=== PATIENT | male | born 1970 | race Caucasian/White ===

== ENCOUNTER 2025-04-03 08:47 | Day surgery (SDC) | payer OTHER ==
[2025-03-31 13:51] VITALS: BMI 31.3
[2025-04-03] MEDS ORDERED: PROPOFOL 120 ML ONE (10:49)
[2025-04-03] MEDS ORDERED: LIDOCAINE VISCOUS 2% ORAL/TOP 15 ML UNIT-DOSE CUP ONE (10:51)
[2025-04-03] MEDS ORDERED: ACETAMINOPHEN 325 MG TABLET (FP) ONE (11:57)
[2025-04-03] MEDS: ACETAMINOPHEN 325 MG TABLET (FP) PO ONE (12:00)
[2025-04-03 12:14] VITALS: RESP 19; TEMP 98
[2025-04-03 12:17] VITALS: BP 125/84; PULSE 74
== END 2025-04-03 12:20 | disposition home or self-care (01) ==
LOC: FASU-ENDO 08:47
PROVIDERS: ATTEND Internal Medicine Gastroenterology
PROC: 0DB98ZX Excision of Duodenum, Via Natural or Artificial Opening Endoscopic, Diagnostic (ICD-10-PCS; 2025-04-03)
PROC: 0DB68ZX Excision of Stomach, Via Natural or Artificial Opening Endoscopic, Diagnostic (ICD-10-PCS; 2025-04-03)
PROC: 0DB58ZX Excision of Esophagus, Via Natural or Artificial Opening Endoscopic, Diagnostic (ICD-10-PCS; 2025-04-03)
PROC: 0DJD8ZZ Inspection of Lower Intestinal Tract, Via Natural or Artificial Opening Endoscopic (ICD-10-PCS; principal; 2025-04-03 11:00)
DX: Z12.11 Encounter for screening for malignant neoplasm of colon (principal); K64.0 First degree hemorrhoids; K57.30 Diverticulosis of large intestine without perforation or abscess without bleeding; R12 Heartburn; K31.89 Other diseases of stomach and duodenum
CPT/HCPCS: 88305-TC; 88342-TC